=== PATIENT | female | born 1990 | race American Indian/Alaskan Native ===

== ENCOUNTER 2020-09-01 05:26 | Inpatient (IN) | payer MEDICAID, OTHER ==
[2020-09-01] MEDS ORDERED: TERBUTALINE 1 MG/1 ML INJ SUB-Q PRN (06:15)
[2020-09-01] MEDS ORDERED: LIDOCAINE (2%) 20 MG/1 ML VIAL 20 ML MDV INFILTRATI ONE (06:15)
[2020-09-01] MEDS ORDERED: AMPICILLIN/NS 2 GM/100 ML 2 GM/100 ML BAG IV ONE (06:15)
[2020-09-01] MEDS ORDERED: ePHEDrine SULFATE 50 MG/1 ML INJ IV PRN ×2 (06:15→13:51)
[2020-09-01] MEDS ORDERED: LACTATED RINGERS 1,000 ML IV ONE ×2 (06:15→06:18)
[2020-09-01] MEDS ORDERED: MINERAL OIL 30 ML ORAL LIQD PO PRN (06:15)
--- NOTE | 2020-09-01 06:38 | History and Physical Report ---
History of Present Illness Date of examination: 09/01/20 Date of admission: 09/01/2020 Chief complaint: Contractions, leaking of fluid History of present illness: 30 year old presents to L&D with complaint of contractions and leaking of fluid. Patient states contractions and LOF started arount 01:00 today. Patient receives care at [facility]; no records are available. EDC 09/04/2020 (self reported by patient). Patient reports no complications during this and states she has no health problems. labs were drawn upon admission. Past History Past Medical History: no pertinent history Past Surgical History: no surgical history [employer] History: denies: chlamydia, gonorrhea, hepatitis B, hepatitis C, herpes, HIV, syphilis, trichomonas Family/Genetic History: none Social history: lives with family, full code. denies: smoking, alcohol abuse, prescription drug abuse, IV drug use - Obstetrical History Expected Date of Delivery: 09/04/20 Actual Gestation: 39 Week(s) 4 Day(s) : 1 Para: 0 Hx # Term Pregnancies: 0 Number of Pregnancies: 0 Spontaneous Abortions: 0 Induced : 0 Number of Living Children: 0 Medications and Allergies Allergies Allergy/AdvReac Type Severity Reaction Status Date / Time No Known Allergies Allergy Verified 09/01/20 06:21 Active Meds: Active Medications Ephedrine Sulfate (Ephedrine Sulfate 50 Mg/1 Ml Inj) 10 mg IV Q2M PRN PRN Reason: Hypotension Lactated Ringer's (Lactated Ringers) 1,000 mls @ 999 mls/hr IV BOLUS ONE Stop: 09/01/20 07:15 Oxytocin/Sodium Chloride (Pitocin/Ns 30 Unit/500ml) 30 units in 500 mls @ 2 mls/hr IV TITR CHEVY; Protocol Lactated Ringer's (Lactated Ringers) 1,000 mls @ 125 mls/hr IV DIRECT [place]VY Oxytocin/Sodium Chloride (Pitocin/Ns 30 Unit/500ml) 30 units in 500 mls @ 40 mls/hr IV TITR CHEVY; Protocol Ampicillin Sodium (Ampicillin/Ns 2 Gm/100 Ml) 2 gm in 100 mls @ 100 mls/hr IV ONCE ONE; Protocol Stop: 09/01/20 07:14 Lactated Ringer's (Lactated Ringers) 1,000 mls @ 999 mls/hr IV BOLUS ONE Stop: 09/01/20 07:18 Ampicillin Sodium (Ampicillin/Ns 1 Gm/50 Ml) 1 gm in 50 mls @ 100 mls/hr IV Q4H CHEVY; Protocol Mineral Oil (Mineral Oil 30 Ml Oral Liqd) 30 ml PO QHS PRN PRN Reason: Constipation Terbutaline Sulfate (Terbutaline 1 Mg/1 Ml Inj) 0.25 mg SUB-Q ONCE PRN PRN Reason: Hyperstimulation/Hypertonicity Review of Systems All systems: negative (contractions, leaking of water) - Vital Signs Vital signs: Vital Signs Pulse BP Pulse Ox 101 H 123/80 100 09/01/20 05:49 09/01/20 05:49 09/01/20 05:49 Temp Pulse Resp BP Pulse Ox 99.1 F 92 H 18 123/80 100 09/01/20 05:50 09/01/20 06:29 09/01/20 05:50 09/01/20 05:50 09/01/20 06:29 - Physical Exam Abdomen: Positive: normal appearance, soft. Negative: distention, tenderness, guarding, rigidity Genitourinary (Female): Positive: normal external genitalia, normal perenium. Negative: perineal/vulvar lesions Vagina: Positive: other (clear fluid, moderate amount) Uterus: Positive: enlarged. Negative: tender Anus/Rectum: Positive: normal perianal skin Extremities: Positive: normal. Negative: edema - Obstetrical FHR: category 2 Uterine Contraction Monitor Mode: External Cervical Dilatation: 5 Cervical Effacement Percentage: 80 station: -1 Uterine Contraction Pattern: Regular Uterine Contraction Intensity: Moderate Results All other labs normal. Assessment and Plan A: at 39 weeks, 4 days gestation. Active labor. GBS unknown. Category 2 FHR tracing. P: Admit. Continuous EFM. GBS prophylaxis. labs. Request records. IV hydration. Consulted with Dr. Palmer re: FHR tracing at 06:24; FHR improving after oxygen and IV fluids.
[2020-09-01] MEDS ORDERED: OXYTOCIN DRIP 30 UNITS/500 ML BAG IV SCH ×3 (07:00→16:00)
[2020-09-01 07:07] LABS: Hematocrit 35.6 % (30.3-42.9); Hemoglobin 11.7 gm/dl (10.1-14.3); Mean Corpuscular HGB Conc 33 % (30-34); Mean Corpuscular Volume 84 fl (79-97); Platelet Count 169 K/mm3 (140-440); Red Blood Count 4.24 M/mm3 (3.65-5.03)
[2020-09-01 07:36] LABS: Hepatitis C Virus Antibody Non-Reactive (NonReactive)
[2020-09-01] MEDS: LACTATED RINGERS 1,000 ML IV SCH ×2 (07:58→22:47)
[2020-09-01] MEDS ORDERED: GENTAMICIN/NS 80 MG/100 ML 100 ML IV SCH (09:00)
[2020-09-01] MEDS ORDERED: AMPICILLIN/NS 1 GM/50 ML 1 GM/50 ML BAG IV SCH (11:00)
[2020-09-01 11:01] LABS: Amphetamine Screen,Urine Negative; Benzodiazepines Screen,Urine Negative; Cannabinoid Screen,Urine Negative; Cocaine Screen,Urine Negative; Methadone Screen,Urine Negative; Opiate Screen,Urine Negative
[2020-09-01 11:02] LABS: Bilirubin,Urine NEG (Negative); Blood,Urine LG (Negative); Color,Urine Yellow (Yellow); Protein,Urine <15 mg/dL mg/dL (Negative); Urobilinogen,Urine < 2.0 mg/dL (<2.0)
[2020-09-01] MEDS ORDERED: fentaNYL 100 MCG/2 ML INJ IV PRN (11:39)
[2020-09-01] MEDS ORDERED: ONDANSETRON 4 MG/2 ML INJ IV PRN ×2 (11:48→22:06)
[2020-09-01] MEDS ORDERED: NALOXONE 2 MG/2 ML INJ IV PRN (13:51)
--- NOTE | 2020-09-01 13:51 | Anesthesia Consultation ---
Anesthesia Consult and Med Hx Date of service: 09/01/20 - Airway Anesthetic Teeth Evaluation: Good ROM Head & Neck: Adequate Mental/Hyoid Distance: Adequate Mallampati Class: Class II Intubation Access Assessment: Probably Good - Pulmonary Exam CTA: Yes - Cardiac Exam Cardiac Exam: RRR - Pre-Operative Health Status ASA Pre-Surgery Classification: ASA2 Proposed Anesthetic Plan: Epidural - Pulmonary Hx Smoking: No Hx Asthma: No Hx Respiratory Symptoms: No SOB: No COPD: No Home Oxygen Therapy: No Hx Pneumonia: No Hx Sleep Apnea: No - Cardiovascular System Hx Hypertension: No Hx Coronary Artery Disease: No Hx Heart Attack/AMI: No Hx Angina: No Hx Percutaneous Transluminal Coronary Angioplasty (PTCA): No Hx Cardia Arrhythmia: No Hx Pacemaker: No Hx Internal Defibrillator: No Hx Valvular Heart Disease: No Hx Heart Murmur: No Hx Peripheral Vascular Disease: No - Central Nervous System Hx Neuromuscular Disorder: No Hx Seizures: No CVA: No Hx Back Pain: Yes Hx Psychiatric Problems: No - Gastrointestinal Hx Ulcer: No Hx Gastroesophageal Reflux Disease: Yes - Endocrine Hx Renal Disease: No Hx End Stage Renal Disease: No Hx Cirrhosis: No Hx Liver Disease: No Hx Insulin Dependent Diabetes: No Hx Non-Insulin Dependent Diabetes: No Hx Thyroid Disease: No Hx Hypothyroidism: No Hx Hyperthyroidism: No - Hematic Hx Anemia: No Hx Sickle Cell Disease: No - Other Systems Hx Alcohol Use: Yes (not since ) Hx Substance Use: No Hx Cancer: No Hx Obesity: No
[2020-09-01] MEDS ORDERED: fentaNYL-BUPIV 2 MCG/ML-0.125% 200 MCG/100 ML BAG EPIDURAL SCH (14:00)
--- NOTE | 2020-09-01 14:25 | Progress Note ---
Labor Epidural - Labor Epidural Start Time: 13:59 Stop Time: 14:08 Performed by:: BAKARI RICHARD Procedure: Patient is requesting a laboring epidural for laboring pain. Patient IDed, H&P reviewed, all questions and concerns were answered, and consent was signed. Timeout was performed at bedside. Patient in sitting position. Sterile prep and drape was performed. [3] ml of 1% lidocaine skin wheal at L[3]- L [4]. 18- gauge Tuohy epidural needle was advanced to loss of resistance with saline technique 6cm. Negative CSF negative blood. Epidural catheter advanced to [10] centimeters. [NEGATIVE] Aspiration [NEGATIVE] test dose. Sterile dressing applied. Patient tolerated procedure.
[2020-09-01] MEDS ORDERED: BICITRA ORAL LIQD 30ML ONE (15:23)
[2020-09-01] MEDS ORDERED: FAMOTIDINE 20 MG/2 ML INJ IV ONE ×2 (15:23→15:24)
[2020-09-01] MEDS ORDERED: METOCLOPRAMIDE 10 MG/2 ML INJ IV ONE (15:23)
--- NOTE | 2020-09-01 15:23 | Progress Note ---
Subjective - Subjective Date of service: 09/01/20 Interval history: NRFHT plan for operative delivery for intolerance to labor remote from delivery informed consent Antonio Palmer MD Objective - Vital Signs Vital Signs: Vital Signs - 12hr 09/01/20 09/01/20 09/01/20 05:49 05:50 05:54 Temperature 99.1 F Pulse Rate 101 H 99 H 99 H Respiratory 18 Rate Blood Pressure 123/80 Blood Pressure 123/80 [Right] O2 Sat by Pulse 100 98 100 Oximetry 09/01/20 09/01/20 09/01/20 05:59 06:04 06:09 Temperature Pulse Rate 104 H 91 H 95 H Respiratory Rate Blood Pressure Blood Pressure [Right] O2 Sat by Pulse 99 99 98 Oximetry 09/01/20 09/01/20 09/01/20 06:14 06:19 06:23 Temperature Pulse Rate 98 H 97 H 87 Respiratory Rate Blood Pressure Blood Pressure [Right] O2 Sat by Pulse 99 98 91 Oximetry 09/01/20 09/01/20 09/01/20 06:24 06:29 06:34 Temperature Pulse Rate 98 H 92 H 90 Respiratory Rate Blood Pressure Blood Pressure [Right] O2 Sat by Pulse 100 100 100 Oximetry 09/01/20 09/01/20 09/01/20 06:39 06:44 07:28 Temperature 99.4 F Pulse Rate 91 H 94 H Respiratory 18 Rate Blood Pressure Blood Pressure [Right] O2 Sat by Pulse 100 100 Oximetry 09/01/20 09/01/20 09/01/20 07:35 07:44 07:49 Temperature Pulse Rate 86 92 H 96 H Respiratory Rate Blood Pressure 105/58 Blood Pressure [Right] O2 Sat by Pulse 100 100 Oximetry 09/01/20 09/01/20 09/01/20 07:54 07:59 08:04 Temperature Pulse Rate 92 H 100 H 89 Respiratory Rate Blood Pressure Blood Pressure [Right] O2 Sat by Pulse 100 100 100 Oximetry 09/01/20 09/01/20 09/01/20 08:09 08:14 08:19 Temperature Pulse Rate 93 H 88 101 H Respiratory Rate Blood Pressure Blood Pressure [Right] O2 Sat by Pulse 100 100 100 Oximetry 09/01/20 09/01/20 09/01/20 08:24 08:29 08:34 Temperature Pulse Rate 98 H 93 H 93 H Respiratory Rate Blood Pressure Blood Pressure [Right] O2 Sat by Pulse 100 100 100 Oximetry 09/01/20 09/01/20 09/01/20 08:39 08:44 09:00 Temperature 98.4 F Pulse Rate 97 H 100 H Respiratory 18 Rate Blood Pressure Blood Pressure [Right] O2 Sat by Pulse 100 100 Oximetry 09/01/20 09/01/20 09/01/20 10:20 10:25 10:30 Temperature Pulse Rate 89 89 97 H Respiratory Rate Blood Pressure Blood Pressure [Right] O2 Sat by Pulse 100 100 100 Oximetry 09/01/20 09/01/20 09/01/20 10:35 10:40 10:45 Temperature Pulse Rate 78 89 88 Respiratory Rate Blood Pressure Blood Pressure [Right] O2 Sat by Pulse 100 100 100 Oximetry 09/01/20 09/01/20 09/01/20 10:50 10:55 11:00 Temperature Pulse Rate 100 H 87 80 Respiratory Rate Blood Pressure Blood Pressure [Right] O2 Sat by Pulse 100 100 100 Oximetry 09/01/20 09/01/20 09/01/20 11:05 11:10 11:15 Temperature Pulse Rate 82 78 75 Respiratory Rate Blood Pressure Blood Pressure [Right] O2 Sat by Pulse 100 100 100 Oximetry 09/01/20 09/01/20 09/01/20 11:20 11:25 11:30 Temperature Pulse Rate 96 H 77 81 Respiratory Rate Blood Pressure Blood Pressure [Right] O2 Sat by Pulse 100 100 100 Oximetry 09/01/20 09/01/20 09/01/20 11:35 11:40 11:45 Temperature Pulse Rate 82 85 89 Respiratory Rate Blood Pressure Blood Pressure [Right] O2 Sat by Pulse 100 100 100 Oximetry 09/01/20 09/01/20 09/01/20 11:50 11:55 12:00 Temperature Pulse Rate 103 H 91 H 87 Respiratory Rate Blood Pressure Blood Pressure [Right] O2 Sat by Pulse 99 100 100 Oximetry 09/01/20 09/01/20 09/01/20 12:05 12:10 12:15 Temperature Pulse Rate 78 82 92 H Respiratory Rate Blood Pressure Blood Pressure [Right] O2 Sat by Pulse 100 100 100 Oximetry 09/01/20 09/01/20 09/01/20 12:20 12:25 12:30 Temperature Pulse Rate 77 77 85 Respiratory Rate Blood Pressure Blood Pressure [Right] O2 Sat by Pulse 100 100 100 Oximetry 09/01/20 09/01/20 09/01/20 12:35 12:40 12:45 Temperature Pulse Rate 69 71 79 Respiratory Rate Blood Pressure Blood Pressure [Right] O2 Sat by Pulse 100 100 100 Oximetry 09/01/20 09/01/20 09/01/20 12:50 12:55 13:00 Temperature Pulse Rate 86 84 84 Respiratory Rate Blood Pressure Blood Pressure [Right] O2 Sat by Pulse 100 100 100 Oximetry 09/01/20 09/01/20 09/01/20 13:10 13:15 13:20 Temperature Pulse Rate 78 72 77 Respiratory Rate Blood Pressure Blood Pressure [Right] O2 Sat by Pulse 100 100 100 Oximetry 09/01/20 09/01/20 09/01/20 13:25 13:30 13:35 Temperature Pulse Rate 77 77 98 H Respiratory Rate Blood Pressure Blood Pressure [Right] O2 Sat by Pulse 100 99 97 Oximetry 09/01/20 09/01/20 09/01/20 13:40 13:45 13:50 Temperature Pulse Rate 91 H 120 H 118 H Respiratory Rate Blood Pressure Blood Pressure [Right] O2 Sat by Pulse 100 95 97 Oximetry 09/01/20 09/01/20 09/01/20 13:55 14:00 14:05 Temperature Pulse Rate 118 H 113 H 121 H Respiratory Rate Blood Pressure Blood Pressure [Right] O2 Sat by Pulse 98 100 100 Oximetry 09/01/20 09/01/20 09/01/20 14:06 14:08 14:10 Temperature Pulse Rate 93 H 108 H 112 H Respiratory Rate Blood Pressure 155/70 138/65 134/79 Blood Pressure [Right] O2 Sat by Pulse 100 Oximetry 09/01/20 09/01/20 09/01/20 14:12 14:15 14:18 Temperature Pulse Rate 111 H 117 H 111 H Respiratory Rate Blood Pressure 119/82 129/89 109/56 Blood Pressure [Right] O2 Sat by Pulse 99 Oximetry 09/01/20 09/01/20 09/01/20 14:20 14:22 14:24 Temperature Pulse Rate 104 H 105 H 92 H Respiratory Rate Blood Pressure 122/56 114/57 114/59 Blood Pressure [Right] O2 Sat by Pulse 99 Oximetry 09/01/20 09/01/20 09/01/20 14:25 14:26 14:28 Temperature Pulse Rate 91 H 89 105 H Respiratory Rate Blood Pressure 114/57 97/63 Blood Pressure [Right] O2 Sat by Pulse 99 Oximetry 09/01/20 09/01/20 09/01/20 14:30 14:32 14:34 Temperature Pulse Rate 99 H 105 H 86 Respiratory Rate Blood Pressure 112/58 101/56 106/56 Blood Pressure [Right] O2 Sat by Pulse 100 Oximetry 09/01/20 09/01/20 09/01/20 14:35 14:36 14:37 Temperature Pulse Rate 86 82 77 Respiratory Rate Blood Pressure 103/58 101/55 Blood Pressure [Right] O2 Sat by Pulse 100 Oximetry 09/01/20 09/01/20 09/01/20 14:39 14:40 14:42 Temperature 100.0 F H Pulse Rate 82 95 H Respiratory Rate Blood Pressure 119/59 112/58 Blood Pressure [Right] O2 Sat by Pulse 100 Oximetry 09/01/20 09/01/20 09/01/20 14:44 14:45 14:46 Temperature Pulse Rate 88 95 H 96 H Respiratory Rate Blood Pressure 110/57 115/57 Blood Pressure [Right] O2 Sat by Pulse 100 Oximetry 09/01/20 09/01/20 09/01/20 14:48 14:50 14:52 Temperature Pulse Rate 85 91 H 107 H Respiratory Rate Blood Pressure 113/59 107/55 96/55 Blood Pressure [Right] O2 Sat by Pulse 100 Oximetry 09/01/20 09/01/20 09/01/20 14:54 14:55 14:56 Temperature Pulse Rate 109 H 97 H 93 H Respiratory Rate Blood Pressure 107/58 111/57 Blood Pressure [Right] O2 Sat by Pulse 100 Oximetry 09/01/20 09/01/20 09/01/20 14:58 15:00 15:02 Temperature Pulse Rate 106 H 107 H 92 H Respiratory Rate Blood Pressure 101/52 110/61 108/57 Blood Pressure [Right] O2 Sat by Pulse 100 Oximetry 09/01/20 09/01/20 09/01/20 15:05 15:10 15:15 Temperature Pulse Rate 109 H 109 H 107 H Respiratory Rate Blood Pressure Blood Pressure [Right] O2 Sat by Pulse 100 100 100 Oximetry 09/01/20 09/01/20 15:18 15:20 Temperature Pulse Rate 95 H 87 Respiratory Rate Blood Pressure 109/57 Blood Pressure [Right] O2 Sat by Pulse 100 Oximetry - Labs Labs: Abnormal Labs 09/01/20 09/01/20 06:25 07:30 WBC 12.3 H Urine WBC (Auto) 18.0 H Laboratory Results - last 24 hr 09/01/20 09/01/20 09/01/20 06:25 06:25 06:25 WBC 12.3 H RBC 4.24 Hgb 11.7 Hct 35.6 MCV 84 MCH 28 MCHC 33 RDW 15.0 Plt Count 169 Urine Color Urine Turbidity Urine pH Ur Specific [place] Urine Protein Urine Glucose (UA) Urine Ketones Urine Blood Urine Nitrite Urine Bilirubin Urine Urobilinogen Ur Leukocyte Esterase Urine WBC (Auto) Urine RBC (Auto) U Epithel Cells (Auto) Urine Opiates Screen Urine Methadone Screen Ur Barbiturates Screen Ur Phencyclidine Scrn Ur Amphetamines Screen U Benzodiazepines Scrn Urine Cocaine Screen U Marijuana (THC) Screen Drugs of Abuse Note Syphilis IgG Antibody Nonreactive Coronavirus (PCR) Hep Bs Antigen Hepatitis C Antibody Non-reactive HIV 1&2 Antibody Rapid HIV P24 Antigen Rubella IgG Antibody Immune Blood Type B POSITIVE Antibody Screen Negative 09/01/20 09/01/20 09/01/20 06:25 06:25 07:30 WBC RBC Hgb Hct MCV MCH MCHC RDW Plt Count Urine Color Urine Turbidity Urine pH Ur Specific [place] Urine Protein Urine Glucose (UA) Urine Ketones Urine Blood Urine Nitrite Urine Bilirubin Urine Urobilinogen Ur Leukocyte Esterase Urine WBC (Auto) Urine RBC (Auto) U Epithel Cells (Auto) Urine Opiates Screen Negative Urine Methadone Screen Negative Ur Barbiturates Screen Negative Ur Phencyclidine Scrn Negative Ur Amphetamines Screen Negative U Benzodiazepines Scrn Negative Urine Cocaine Screen Negative U Marijuana (THC) Screen Negative Drugs of Abuse Note Disclamer Syphilis IgG Antibody Coronavirus (PCR) Hep Bs Antigen Non-reactive Hepatitis C Antibody HIV 1&2 Antibody Rapid Non react HIV P24 Antigen Non react Rubella IgG Antibody Blood Type Antibody Screen 09/01/20 09/01/20 07:30 09:20 WBC RBC Hgb Hct MCV MCH MCHC RDW Plt Count Urine Color Yellow Urine Turbidity Clear Urine pH 7.0 Ur Specific [place] 1.012 Urine Protein <15 mg/dl Urine Glucose (UA) Neg Urine Ketones Neg Urine Blood Lg Urine Nitrite Neg Urine Bilirubin Neg Urine Urobilinogen < 2.0 Ur Leukocyte Esterase Tr Urine WBC (Auto) 18.0 H Urine RBC (Auto) 12.0 U Epithel Cells (Auto) < 1.0 Urine Opiates Screen Urine Methadone Screen Ur Barbiturates Screen Ur Phencyclidine Scrn Ur Amphetamines Screen U Benzodiazepines Scrn Urine Cocaine Screen U Marijuana (THC) Screen Drugs of Abuse Note Syphilis IgG Antibody Coronavirus (PCR) Negative Hep Bs Antigen Hepatitis C Antibody HIV 1&2 Antibody Rapid HIV P24 Antigen Rubella IgG Antibody Blood Type Antibody Screen
[2020-09-01] MEDS ORDERED: METOCLOPRAMIDE 10 MG/2 ML INJ ONE (15:24)
[2020-09-01] MEDS ORDERED: ceFAZolin/Water 2 GM/20 ML 2 GM/20 ML SYRINGE IV ONE (15:25)
[2020-09-01] MEDS ORDERED: LACTATED RINGERS 1,000 ML IV SCH (15:30)
[2020-09-01] MEDS ORDERED: LIDOCAINE MPF (2%) 20 MG/1 ML VIAL 5 ML ONE ×3 (15:45→18:45)
[2020-09-01] MEDS ORDERED: ceFAZolin/STERILE WATER 2 GM/20 ML SYRINGE IV ONE (15:59)
[2020-09-01] MEDS ORDERED: SODIUM CHLORIDE 0.9% IRR 1,500 ML BOTTLE IR ONE (15:59)
[2020-09-01] MEDS ORDERED: WATER FOR IRRIG STERILE 1,500 ML BOTTLE IR ONE (15:59)
[2020-09-01] MEDS ORDERED: BICITRA ORAL LIQD 30ML PO ONE (16:00)
[2020-09-01] MEDS ORDERED: SUCCINYLCHOLINE CHLORIDE 200 MG/10 ML INJ MDV ONE (16:32)
[2020-09-01] MEDS ORDERED: propofoL 200 MG/20 ML VIAL IV ONE (16:32)
[2020-09-01] MEDS ORDERED: METHYLERGONOVINE MALEATE 0.2 MG/ML VIAL IM ONE (16:39)
[2020-09-01] MEDS ORDERED: miSOPROStol 200 MCG TAB ONE (16:40)
[2020-09-01] MEDS ORDERED: MIDAZOLAM 2 MG/2 ML INJ ONE ×2 (16:41→16:43)
[2020-09-01] MEDS ORDERED: HYDROmorphone 1 MG/1 ML INJ ONE ×2 (16:41)
[2020-09-01] MEDS ORDERED: dexAMETHasone 20 MG/5 ML VIAL ONE (17:11)
[2020-09-01] MEDS ORDERED: ONDANSETRON 4 MG/2 ML INJ ONE (17:11)
--- NOTE | 2020-09-01 19:17 | Anesthesia Day of Surgery ---
Anesthesia Day of Surgery - Day of Surgery Patient Examined: Yes Patient H&P Reviewed: Yes Patient is NPO: Yes Beta Blockers: No Cardiac Clearance: No Pulmonary Clearance: No Azam's Test: N/A
--- NOTE | 2020-09-01 19:17 | Post Anesthesia Evaluation ---
- Post Anesthesia Evaluation Patient Participated: Yes Airway Patent: Yes Stable Respiratory Function: Yes Nausea/Vomiting: No Temp > 96.8F: Yes Pain Manageable: Yes Adequeate Hydration: Yes Anesthesia Complications: No Block Receding Appropriately: Yes Patient on Ventilator: No
--- NOTE | 2020-09-01 19:19 | Procedure Note ---
OB Delivery Note - Delivery Date of Delivery: 09/01/20 Surgeon: VINNIE SANON - Section Preop diagnosis: nonreassuring FHR tracing (remote from delivery,chorioamnionitis) Postop diagnosis: same section procedure: primary low transverse Disposition: PACU Complications: none Narrative: Preop diagnosis: IUP at 39.4 weeks,non-reassuring heart tones remote from delivery with suspected chorioamnionitis Postop diagnosis: Same,delivered Procedure: Primary low transverse section via Pfannenstiel incision Surgeon: Dr. Vinnie Sanon Anesthesia GETA Complications pain with epidural requiring GETA EBL 668 ml IV fluids 1000mL Urine output 100mL, clear Drains Villatoro to gravity Findings: Viable female with weight 3117gms and 8/9, normal uterus tubes and ovaries bilaterally Procedure: Patient was consented in 2011, taken to the operating room where execllent spinal epidural anesthesia was verified. She was then placed in the dorsal supine position with a leftward tilt. The abdomen was prepped and draped in a sterile fashion, and a timeout was verified. Adequate anesthesia was confirmed prior to the skin incision. A Pfannenstiel skin incision was made with a scalpel taken down to the underlying structures and the fascia was incised in the midline. The incision was extended laterally with curved Loo scissors, the superior and inferior aspects of the fascial incisions were grasped with Humphrey clamps and the rectus muscles dissected sharply. The abdomen was entered bluntly in the midline carried down inferiorly with good visualization of the bladder. The vesicouterine peritoneum was tented with Kittitian forceps and incised in the midline with Metzenbaum scissors and the vesicouterine peritoneum taken down sharply. A bladder blade was inserted, and patient was noted to be in severe pain. Patient then as intubated without complication. The uterine incision was made sharply with a scalpel. The inferior and superior aspect of the uterine incisions were extended bluntly, the baby's head was delivered atraumatically. The remainder of the delivery was uncomplicated. The cord was clamped and cut and baby handed to waiting NICU team. An intact placenta with three-vessel cord delivered manually. The uterus was then cleared of all clots and debris and the uterus exteriorized. The uterine incision was closed with 2 layers of 0 vicryl with excellent hemostasis. The abdomen was then irrigated with warm normal saline and the uterus placed back into the abdomen atraumatically. A second look at the uterine incision and ensured hemostasis. The peritoneum was closed with 3-0 Vicryl, the rectus muscles approximated with 3-0 Vicryl, and the fascia closed with 0 Vicryl in the usual fashion. The subcuticular structures were closed with interrupted sutures of 3- 0 Vicryl and the skin closed with 4-0 Monocryl. A pressure dressing was applied. All sponge needle and instrument counts were correct x2. There were no complications. Patient was extubated with out complication. Mom to the recovery area and baby to NICU in stable condition. EBL 668 mL Antonio Sanon MD
[2020-09-01] MEDS ORDERED: KETOROLAC 30 MG/1 ML INJ IV PRN ×2 (22:06)
[2020-09-01] MEDS ORDERED: WITCH HAZEL/ GLYCERIN PAD TP PRN (22:06)
[2020-09-01] MEDS ORDERED: PROMETHAZINE 25 MG RECT SUPP PR PRN (22:06)
[2020-09-01] MEDS ORDERED: SENNOSIDES 8.6 MG TAB PO PRN (22:06)
[2020-09-01] MEDS ORDERED: IBUPROFEN 800 MG TAB PO PRN (22:06)
[2020-09-01] MEDS ORDERED: MORPHINE 4 MG/1 ML INJ IV PRN (22:06)
[2020-09-01] MEDS ORDERED: LANOLIN/ZINC/DIMETHICONE (LANSINOH) 7 GM TP PRN (22:06)
[2020-09-01] MEDS ORDERED: SIMETHICONE 80 MG CHEW TAB PO PRN (22:06)
[2020-09-01] MEDS ORDERED: NALOXONE 0.4 MG/1 ML INJ IV PRN (22:06)
[2020-09-01] MEDS ORDERED: MORPHINE 2 MG/1 ML INJ IV PRN (22:06)
[2020-09-01] MEDS ORDERED: MAGNESIUM HYDROXIDE (MOM) ORAL LIQD UDC PO PRN (22:06)
[2020-09-01] MEDS ORDERED: CLINDAMYCIN 600 MG/50 mL 600 MG/50 ML BAG IV SCH (23:00)
[2020-09-01] MEDS ORDERED: ceFAZolin/NS 1 GM/50 ML 1 GM/50 ML BAG IV SCH (23:00)
[2020-09-02] MEDS: HYDROcodone/ACETAMINOPHEN 5-325 MG TAB PO PRN ×2 (10:30→17:08)
[2020-09-02 11:41] LABS: Hematocrit 29.4 % (30.3-42.9); Hemoglobin 9.5 gm/dl (10.1-14.3)
--- NOTE | 2020-09-02 12:23 | Progress Note ---
Assessment and Plan A: day 1 S/P primary LTCS. Anemia. P: Encouraged patient to ambulate and drink warm liquids. Routine /postop care. Oral iron supplementation. Subjective - Subjective Date of service: 09/02/20 Principal diagnosis: day 1 S/P primary LTCS Interval history: Burping but not passing gas yet. Patient reports: appetite normal, voiding normally, pain well controlled, ambu lating normally, no dizzy ambulation, no flatus, no bowel movement, no nauseated : doing well Objective - Vital Signs Latest vital signs: Vital Signs Temp Pulse Resp BP BP Pulse Ox 09/02/20 08:34 98.4 F 96 H 18 99/64 98 09/02/20 04:20 98.3 F 104 H 18 106/72 97 09/02/20 00:49 99.0 F 108 H 18 103/65 98 09/01/20 20:42 98.6 F 74 20 115/65 97 09/01/20 18:30 98.0 F 109 H 21 84/45 09/01/20 18:15 119 H 18 82/45 09/01/20 18:00 118 H 14 80/45 09/01/20 17:45 119 H 21 82/43 09/01/20 17:40 111 H 16 81/38 09/01/20 17:35 115 H 20 76/34 99 09/01/20 17:30 99.1 F 114 H 22 77/32 99 09/01/20 15:47 117 H 96/52 09/01/20 15:45 107 H 99 09/01/20 15:40 104 H 100 09/01/20 15:35 99 H 100 09/01/20 15:32 110 H 95/54 09/01/20 15:30 82 100 09/01/20 15:25 98 H 100 09/01/20 15:20 87 100 09/01/20 15:18 95 H 109/57 09/01/20 15:15 107 H 100 09/01/20 15:10 109 H 100 09/01/20 15:05 109 H 100 09/01/20 15:02 92 H 108/57 09/01/20 15:00 107 H 110/61 100 09/01/20 14:58 106 H 101/52 09/01/20 14:56 93 H 111/57 09/01/20 14:55 97 H 100 09/01/20 14:54 109 H 107/58 09/01/20 14:52 107 H 96/55 09/01/20 14:50 91 H 107/55 100 09/01/20 14:48 85 113/59 09/01/20 14:46 96 H 115/57 09/01/20 14:45 95 H 100 09/01/20 14:44 88 110/57 09/01/20 14:42 95 H 112/58 09/01/20 14:40 82 119/59 100 09/01/20 14:39 100.0 F H 09/01/20 14:37 77 101/55 09/01/20 14:36 82 103/58 09/01/20 14:35 86 100 09/01/20 14:34 86 106/56 09/01/20 14:32 105 H 101/56 09/01/20 14:30 99 H 112/58 100 09/01/20 14:28 105 H 97/63 09/01/20 14:26 89 114/57 09/01/20 14:25 91 H 99 09/01/20 14:24 92 H 114/59 09/01/20 14:22 105 H 114/57 09/01/20 14:20 104 H 122/56 99 09/01/20 14:18 111 H 109/56 09/01/20 14:15 117 H 129/89 99 09/01/20 14:12 111 H 119/82 09/01/20 14:10 112 H 134/79 100 09/01/20 14:08 108 H 138/65 09/01/20 14:06 93 H 155/70 09/01/20 14:05 121 H 100 09/01/20 14:00 113 H 100 09/01/20 13:55 118 H 98 09/01/20 13:50 118 H 97 09/01/20 13:45 120 H 95 09/01/20 13:40 91 H 100 09/01/20 13:35 98 H 97 09/01/20 13:30 77 99 09/01/20 13:25 77 100 09/01/20 13:20 77 100 09/01/20 13:15 72 100 09/01/20 13:10 78 100 09/01/20 13:00 84 100 06/19/21 12:55 84 09/01/20 12:50 86 09/01/20 12:45 79 100 09/01/20 12:40 71 100 09/01/20 12:35 69 09/01/20 12:30 85 100 09/01/20 12:25 77 100 Intake and Output 09/01/20 09/02/20 09/02/20 23:59 07:59 15:59 Intake Total 240 Output Total 1850 1800 Balance -1850 -1560 Intake: Intake, Free Water 240 Output: Urine 1850 1800 Indwelling Catheter 1600 1800 Other: Total, Output Amount 1600 900 - Exam Cardiovascular: Present: Regular rate Lungs: Present: Clear to auscultation Abdomen: Present: normal appearance, soft, normal bowel sounds. Absent: distention, tenderness, guarding, rigidity Uterus: Present: normal, firm, fundal height below umbilicus. Absent: bogginess, tenderness Extremities: Present: normal. Absent: tenderness, edema Incision: Present: dry, intact, dressed - Labs Labs: Abnormal lab results 09/02/20 Range/Units 11:24 Hgb 9.5 L (10.1-14.3) gm/dl Hct 29.4 L D (30.3-42.9) %
[2020-09-02] MEDS: IBUPROFEN 600 MG TAB PO PRN ×2 (12:35→17:53)
[2020-09-02] MEDS ORDERED: CLINDAMYCIN 600 MG/50 mL 600 MG/50 ML BAG IV ONE (18:00)
[2020-09-02] MEDS ORDERED: ceFAZolin/NS 1 GM/50 ML 1 GM/50 ML BAG IV ONE (18:00)
[2020-09-02] MEDS: FERROUS SULFATE 325 MG TAB PO SCH (23:05)
[2020-09-03] MEDS: FERROUS SULFATE 325 MG TAB PO SCH (10:08)
--- NOTE | 2020-09-03 11:09 | Progress Note ---
Assessment and Plan A: POD# 2 Asymptomatic Anemia P: Follow Routine PostOp Orders Continue PO FeSO4 as ordered Abdominal Binder D/C Home today per patient request RTO in 1 Week Subjective - Subjective Date of service: 09/03/20 Principal diagnosis: day 1 S/P primary LTCS Patient reports: appetite normal, voiding normally, pain well controlled, flatus, ambulating normally [place]: doing well, bottle feeding (and ) Objective - Vital Signs Latest vital signs: Vital Signs Temp Pulse Resp BP BP Pulse Ox 09/03/20 07:51 98.3 F 78 16 102/68 99 09/02/20 23:51 97.9 F 90 20 98/63 98 09/02/20 17:00 98.2 F 100 H 18 111/71 99 Intake and Output 09/02/20 09/03/20 09/03/20 22:59 06:59 14:59 Intake Total 240 480 Output Total 300 Balance -60 480 Intake: Oral 240 480 Output: Urine 300 Void 300 Other: Total, Intake Amount 240 120 Total, Output Amount 300 # Voids Void 1 1 - Exam Breasts: Present: normal Cardiovascular: Present: Regular rate Lungs: Present: Clear to auscultation, Normal air movement Abdomen: Present: normal appearance, soft, normal bowel sounds Uterus: Present: normal, firm, fundal height below umbilicus Extremities: Present: normal Incision: Present: normal, dry, intact - Labs Labs: Abnormal lab results 09/02/20 Range/Units 11:24 Hgb 9.5 L (10.1-14.3) gm/dl Hct 29.4 L D (30.3-42.9) %
--- NOTE | 2020-09-03 11:10 | Discharge Summary ---
Providers - Providers Date of Admission: 09/01/20 08:55 Date of discharge: 09/03/20 Attending physician: VINNIE SANON MD Primary care physician: [employer] Hospitalization Reason for admission: rupture of membranes Delivery: Procedure: primary low transverse Episiotomy: none Laceration: none Incision: normal, dry, intact Other procedures: none complications: none Discharge diagnosis: IUP at term delivered [place] baby: female Condition at discharge: Good Disposition: DC-01 TO HOME OR SELFCARE Plan - Discharge Medications Prescriptions: Ibuprofen [Motrin] 600 mg PO Q8H PRN #60 tablet PRN Reason: Pain oxyCODONE /ACETAMINOPHEN [Percocet 5/325] 1 tab PO Q6HR PRN #20 tablet PRN Reason: Pain - Provider Discharge Summary Activity: routine, no sex for 6 weeks, no heavy lifting 4 weeks, no strenuous exercise Diet: routine Instructions: routine Additional instructions: [] Smoking cessation referral if applicable(refer to patient education folder for contact #) [] Refer to [facility]'s [facility] Booklet Call your doctor immediately for: * Fever > 100.5 * Heavy vaginal bleeding ( >1 pad per hour) * Severe persistent headache * Shortness of breath * Reddened, hot, painful area to leg or breast * Drainage or odor from incision. * Keep incision clean and dry at all times and follow doctor's instructions regarding bathing/showering - Follow up plan Follow up: VINNIE SANON MD [Staff Physician] - 7 Days
[2020-09-03] MEDS: HYDROcodone/ACETAMINOPHEN 5-325 MG TAB PO PRN (15:55)
[2020-09-03] MEDS: IBUPROFEN 600 MG TAB PO PRN (18:52)
[2020-09-03 22:20] VITALS: BP 102/63
== END 2020-09-03 21:35 | disposition home or self-care (01) | DRG 786 ==
LOC: TRG 05:26 → APU 05:26 → TRG 06:15 → LD 08:55 → OB 19:52
PROVIDERS: ADMIT Obstetrics & Gynecology; ATTEND Obstetrics & Gynecology
PROC: 10D00Z1 Extraction of Products of Conception, Low, Open Approach (ICD-10-PCS; principal; 2020-09-01)
DX: O76 Abnormality in fetal heart rate and rhythm complicating labor and delivery (principal); O41.1230 Chorioamnionitis, third trimester, not applicable or unspecified; O75.0 Maternal distress during labor and delivery; Z3A.39 39 weeks gestation of pregnancy; Z37.0 Single live birth; D64.9 Anemia, unspecified; Z20.822 Contact with and (suspected) exposure to COVID-19; O99.62 Diseases of the digestive system complicating childbirth; K21.9 Gastro-esophageal reflux disease without esophagitis; O90.81 Anemia of the puerperium
CPT/HCPCS: 36415; 59025; 80307; 81001; 85014; 85018; 85027; 86592; 86706; 86762; 86803; 86850; 86900; 86901; 87086; 87806; 96360; G0378; A6250; J0290; J0330; J0690; J1100; J1170; J1580; J2250; J2270; J2405; J2590; J2704; J2765; J7120; U0003